=== PATIENT | female | born 1980 | race Caucasian/White ===

== ENCOUNTER 2017-09-14 10:47 | Emergency (ER) | payer OTHER ==
[~2017-09-14 10:47] MED LIST: AUG875 PO; BO30S PR; CIT500PT PO; DAR100 PO; DOCU-416 PO; DOXY-179 PO; ESC10 PO; ESCI20TA38 PO; FLUO60TA PO; HYDR-2966 PO; HYDR-4309 PO; HYDR2TAB74 PO; HYOS-24 SL; IBU800 PO; IBUP-1618 PO; IBUP600T22 PO; LOR5 PO; NEBI5TAB PO; NITR-105 PO; NORG1TAB95 PO; OXYB10TA16 PO; OXYC-373 PO; OXYC-865 PO; PER PO; PHEN200T32 PO; PREN-85 PO; PROM-110 PO; SIME80TA63 PO; TAMS0.4C25 PO; VALA500T66 PO; VORT20TA PO
--- NOTE | 2017-09-14 10:53 | ER Report ---
History and Physical Time Seen By MD: 10:52 HPI/ROS CHIEF COMPLAINT: Left lower extremity swelling HISTORY OF PRESENT ILLNESS: Patient is a 37-year-old female with past medical history significant for multiple musculoskeletal surgeries. Most recently she had a gastrocnemius release secondary to a plantar fasciitis in July 2017 that was done by . She is complaining of some swelling and pain to the posterior aspect of the left lower extremity along with a palpable "knot" she is most concerned with her recent surgery that she has developed a DVT. Patient has no prior history of DVTs and she does not complain of any chest pain or dyspnea. REVIEW OF SYSTEMS: Respiratory: No cough, no dyspnea. Cardiovascular: No chest pain, no palpitations. Gastrointestinal: No vomiting, no abdominal pain. Musculoskeletal: No back pain. Left lower extremity pain and swelling Allergies: Coded Allergies: vancomycin (Verified Allergy, Intermediate, HIVES, 09/14/17) Sulfa (Sulfonamide Antibiotics) (Verified Allergy, Unknown, 09/14/17) Home Meds Reported Medications Lactobacillus Combination No.4 (PROBIOTIC) 1 Each Capsule, 1 EACH PO QDAY, CAPSULE 09/14/17 Hydrochlorothiazide (HYDROCHLOROTHIAZIDE) 25 Mg Tablet, 1 TAB PO BID, TAB 09/14/17 Ibuprofen (IBUPROFEN) 600 Mg Tablet, 1 TAB PO Q6H Y for PAIN, #20 TAB 10/16/16 Vortioxetine Hydrobromide (Brintellix) 20 Mg Tablet, TAB PO DAILY 08/29/16 Nebivolol Hcl (BYSTOLIC) 5 Mg Tablet, 5 MG PO 08/29/16 Valacyclovir Hcl (VALTREX) 500 Mg Tablet, 500 MG PO DAILY 08/29/16 Discontinued Reported Medications Phenazopyridine Hcl (PHENAZOPYRIDINE HCL) 200 Mg Tablet, 200 MG PO TID Y for BURNING WITH URINATION, #20 TAB 10/16/16 Docusate Sodium (COLACE) 100 Mg Capsule, 100 MG PO BID, #30 CAPSULE 10/16/16 Hydrocodone Bit/Acetaminophen (NORCO 5-325 TABLET) 1 Each Tablet, 1-2 EACH PO Q6H Y for PAIN, #20 TAB 10/16/16 Hydrochlorothiazide (HYDROCHLOROTHIAZIDE) 25 Mg Tablet, 1 TAB PO QDAY, TAB 08/29/16 Past Medical/Surgical History Past medical history for sleep apnea, depression, hypertension. Past surgical history for knee surgery, cholecystectomy, , hysterectomy, plantar fasciitis. He also had history of a large UPJ stone on the right and ended up having a stent placement in 2017 with subsequent removal. Hx Smoking: No Smoking Status: Never Smoker Hx Substance Use Disorder: No Hx Alcohol Use: No Constitutional Vital Sign - Last 24 Hours 09/14/17 09/14/17 09/14/17 09/14/17 10:48 10:56 11:00 11:02 Temp 98.1 Pulse 66 59 Resp 20 B/P (MAP) 144/95 120/80 (93) 115/82 (93) Pulse Ox 92 93 O2 Delivery Room Air 09/14/17 09/14/17 09/14/17 09/14/17 11:17 11:22 11:30 11:37 Pulse 57 50 52 B/P (MAP) 121/71 (88) Pulse Ox 93 94 92 09/14/17 09/14/17 09/14/17 09/14/17 11:52 12:00 12:07 12:12 Pulse 52 52 57 B/P (MAP) 124/78 (93) Pulse Ox 95 93 93 Physical Exam General Appearance: The patient is alert, has no immediate need for airway protection and no current signs of toxicity. Respiratory: Chest is non tender, lungs are clear to auscultation. Cardiac: regular rate and rhythm surgical site looks clean dry and well healed. Musculoskeletal: Extremities have full range of motion. There is increased swelling to the left lower extremity compared to the right with nonpitting edema. \\ Medical Decision Making EKG/Imaging Imaging [place] [facility] [place] NAME: Luis Kauffman : 1980 MR: [id number] V: [id number] EXAM DATE: ORDERING PHYSICIAN: NILDA LINDSAY TECHNOLOGIST: Location: [facility] [place] Patient: Luis Kauffman : 1980 Visit/Account:[id number] Date of Sevice: 09/14/2017 Exam type: VENOUS DOPP LOW LEFT EXTREMITY History: Left leg swelling, gastrocnemius muscle release in July Comparison: None. Findings: The left lower extremity veins were imaged including the left common femoral vein, greater saphenous vein, superficial femoral vein, popliteal vein, posterior tibial vein, anterior tibial vein, peroneal vein revealing no evidence of intraluminal thrombi the veins were compressible and demonstrated normal augmentation IMPRESSION: 1. No sonographic evidence DVT involving the left lower extremity veins Report Dictated By: Ariane Christy MD at 09/14/2017 12:10 PM Report E-Signed By: Ariane Christy MD at 09/14/2017 12:12 PM WSN:[email or web address] ED Course/Re-evaluation ED Course Plan this time will be to perform a Doppler ultrasound of the left lower extremity to rule out DVT. Decision to Disposition Date: September 14, 2017 Decision to Disposition Time: 12:21 Depart Departure Latest Vital Signs Vital Signs Date Time Temp Pulse Resp B/P (MAP) Pulse Ox O2 Delivery O2 Flow Rate FiO2 09/14/17 12:12 57 93 09/14/17 12:00 124/78 (93) 09/14/17 10:48 98.1 20 Room Air Impression: Primary Impression: Leg swelling Condition: Condition Unchanged Disposition: HOME OR SELF-CARE Referrals: ANAT POTTS MD (PCP) 1 Week if symptoms persist GIOVANNA OROURKE MD Departure Forms: ER Transition Record, Medications Reconciliation, Off Work/ School Form, School or Work Release?: Work Number of days to be released: 1 Patient Portal Information Patient Instructions: Leg Edema (ED) Additional Instructions: It might be helpful to purchase some compression stockings from a local pharmacy. Use these during the day and then remove at nighttime. NILDA LINDSAY MD September 14, 2017 10:53
[2017-09-14] MEDS ORDERED: LACT1CAP6 PO (10:55)
[2017-09-14] MEDS ORDERED: HYDR-2966 PO (10:55)
[2017-09-14 12:00] VITALS: BP 124/78
--- NOTE | 2017-09-14 12:17 | RADIOLOGY IMAGING REPORT ---
FACILITY: [facility] - [place] PATIENT NAME: Luis Kauffman : 1980 MR: [id number] V: [id number] EXAM DATE: ORDERING PHYSICIAN: NILDA LINDSAY TECHNOLOGIST: Location: [facility] Patient: Luis Kauffman : 1980 Visit/Account:[id number] Date of Sevice: 09/14/2017 Exam type: VENOUS DOPP LOW LEFT EXTREMITY History: Left leg swelling, gastrocnemius muscle release in July Comparison: None. Findings: The left lower extremity veins were imaged including the left common femoral vein, greater saphenous vein, superficial femoral vein, popliteal vein, posterior tibial vein, anterior tibial vein, peroneal vein revealing no evidence of intraluminal thrombi the veins were compressible and demonstrated norm al augmentation IMPRESSION: 1. No sonographic evidence DVT involving the left lower extremity veins Report Dictated By: Ariane Christy MD at 09/14/2017 12:10 PM Report E-Signed By: Ariane Christy MD at 09/14/2017 12:12 PM WSN:[email or web address]
== END 2017-09-14 12:30 | disposition home or self-care (01) ==
LOC: ER 10:50
DX: M79.89 Other specified soft tissue disorders (principal)
CPT/HCPCS: 99283

== ENCOUNTER → 2018-02-15 | Outpatient (CLI) | payer OTHER ==
[~2018-02-15] MED LIST changes: +LACT1CAP6 PO
--- NOTE | 2018-02-15 08:53 | RADIOLOGY IMAGING REPORT ---
FACILITY: [facility] - [place] PATIENT NAME: Luis Kauffman : 1980 MR: [id number] V: [id number] EXAM DATE: ORDERING PHYSICIAN: SORAIDA AKERS TECHNOLOGIST: Location: [facility] Patient: Luis Kauffman : 1980 Visit/Account:[id number] Date of Sevice: 02/15/2018 CT abdomen and pelvis without IV contrast - Renal Stone Protocol History: History of renal stones. COMPARISON STUDIES: CT abdomen and pelvis, 04/04/2017. TECHNIQUE: Axial CT images were obtained through the kidneys, ureters, and bladder without IV contr ast. Reformatted coronal and sagittal images were also obtained. One of the following dose optimization techniques was utilized in the performance of this exam: Autom ated exposure control; adjustment of the mA and/or kV according to the patient's size; or use of an i terative reconstruction technique. Specific details can be referenced in the facility's radiology C T exam operational policy. FINDINGS: CT Abdomen and Pelvis- Chest bases: Negative Liver: Normal. Spleen: size is normal. Gallbladder and bile ducts: Cholecystectomy. Normal sized bile ducts. Pancreas: negative Adrenal glands: negative Right kidney and ureter: There are no stones or hydronephrosis. Renal parenchymal thickness is pres erved. Left kidney and ureter: There are no stones or hydronephrosis. Renal parenchymal thickness is prese rved. Pelvic structures: There are no bladder stones. Prostate gland, seminal vesicles, and bladder ar e unremarkable. Bowel and mesenteries: negative Ascites: None Vessels: negative Musculoskeletal: Negative Body wall: Single coarse calcification in the subcutaneous fat of the right buttock. Abd/Pelvis lymph node assessment: negative IMPRESSION: Negative study for urinary stones and renal collecting system obstruction. Report Dictated By: Mindy Julio MD at 02/15/2018 8:34 AM Report E-Signed By: Mindy Julio MD at 02/15/2018 8:49 AM WSN:[email or web address]
== END ==
LOC: CT 04:18
PROVIDERS: ATTEND Urology
DX: N20.0 Calculus of kidney (principal)
CPT/HCPCS: 74176

== ENCOUNTER → 2018-08-02 | Outpatient (CLI) | payer OTHER ==
[~2018-08-02] MED LIST changes: -HYDR-4309 PO; +HYDR-653 PO; +IOPAMIDOL 76% 150 ML INFUS BTL 150 ML ONE
--- NOTE | 2018-08-02 10:45 | RADIOLOGY IMAGING REPORT ---
FACILITY: [facility] PATIENT NAME: Luis Kauffman : 1980 MR: [id number] V: [id number] EXAM DATE: ORDERING PHYSICIAN: LIYAH CHASE TECHNOLOGIST: Location: [facility] - [place] Patient: Luis Kauffman : 1980 Visit/Account:[id number] Date of Sevice: 08/02/2018 Chest with lateral, two views. HISTORY: Shortness of breath, hypoxia. COMPARISON: 08/31/2016. The heart and mediastinum are unremarkable. Pulmonary vessels are unremarkable. The lungs are clear . The pleural surfaces are unremarkable. No pneumothorax. The bones are unremarkable. IMPRESSION: No evidence of acute cardiopulmonary disease. Report Dictated By: Elmer Langley MD at 08/02/2018 10:39 AM Report E-Signed By: Elmer Langley MD at 08/02/2018 10:41 AM WSN:[email or web address]
--- NOTE | 2018-08-02 11:55 | RADIOLOGY IMAGING REPORT ---
FACILITY: [facility] - [place] PATIENT NAME: Luis Kauffman : 1980 MR: [id number] V: [id number] EXAM DATE: ORDERING PHYSICIAN: LIYAH CHASE TECHNOLOGIST: Location: [facility] Patient: Luis Kauffman : 1980 Visit/Account:[id number] Date of Sevice: 08/02/2018 CT SINUS W/CONTRAST COMPARISONS: None ADDITIONAL PERTINENT HISTORY: Migraine headaches with nasal polyps TECHNIQUE: Multiple axial images were obtained through the paranasal sinuses with coronal and sagitta l reformatted images. IV contrast was administered. One of the following dose optimization techniqu es was utilized in the performance of this exam: Automated exposure control; adjustment of the mA and /or kV according to the patient's size; or use of an iterative reconstruction technique. Specific d etails can be referenced in the facility's radiology CT exam operational policy. Contrast: 75 mL of Isovue-370 FINDINGS: Maxillary sinuses: Negative. Frontal sinuses: Rudimentary frontal sinuses which are clear.. Ethmoid air cells: Negative. Sphenoid sinuses:Negative. Nasal septum: Mild nasal septal deviation to the left.. Drainage pathways: Patent Paranasal variance: None Medial orbital ulloa, cribriform plate, and orbital floors: Negative. Visualized bony skull base Negative. Visualized intracranial contents: Negative. Orbits and surrounding soft tissues: Negative. Pathologic enhancement: None IMPRESSION: 1. Nasal septal deviation to the left. 2. No underlying paranasal sinus disease noted. Report Dictated By: Nas Ramirez MD at 08/02/2018 11:46 AM Report E-Signed By: Nas Ramirez MD at 08/02/2018 11:51 AM WSN:[id number]
== END ==
LOC: CT 07-25 00:08
PROVIDERS: ATTEND Family Medicine
DX: J34.2 Deviated nasal septum (principal)
CPT/HCPCS: 70487; 71046; Q9967